=== PATIENT | male | born 1960 | race Caucasian/White ===

== ENCOUNTER 2017-03-08 13:44 | Emergency (ER) | payer OTHER ==
--- NOTE | 2017-03-08 15:58 | ED CLINICAL REPORT ---
Clinical Report - Physicians/Mid Levels [facility] [address] [place] [address] 03/08/2017 13:47 Patient: MARV MARCELINO Time Seen: 1445; initial patient contact. Arrived- By private vehicle. Historian- patient. HISTORY OF PRESENT ILLNESS Chief Complaint: Injury to the right foot. The injury happened just prior to arrival. Occurred at home. ( pt was cutting through a log, when the chainsaw went through the log and onto the top of his right foot, cutting it.). The patient sustained a laceration (with a chain saw). Patient is experiencing moderate pain. Patient denies injury to the head or neck. REVIEW OF SYSTEMS The patient sustained a laceration to the right foot. Foreign body is suspected (dirt and debris from sawing). No weakness or numbness. All systems otherwise negative, except as recorded above. PAST HISTORY See nurses notes. Tetanus immunization status is unknown. Problems: Hypertension. Medications: Aspirin Oral (Tablet Chewable 81 mg) 2 tablets, daily. Lisinopril Oral 20 mg, daily. Allergies: No Known Drug Allergy. SOCIAL HISTORY Never smoker. Alcohol use. No drug use. ADDITIONAL NOTES The nursing notes have been reviewed with agreement regarding the chief complaint, HPI, ROS, PMH and patient medications and allergies. PHYSICAL EXAM Vital Signs: 03/08/2017 16:03 BP: 125/75. HR: 60. RR: 16. O2 saturation: 100%. Temp: 98.1 F. Have been reviewed. Appearance: Alert. Oriented X3. No acute distress. Head: Head atraumatic. Extremities: Right foot: deep 5.0 cm laceration and visualized foreign body located in the dorsal aspect of the mid foot. SEE LACERATION PROCEDURE NOTE #1. Limited weight bearing secondary to pain. Neurovascular intact distally. No deformity. No ankle injury. Extremities otherwise negative. Neuro, Vascular and Tendons: Vascular status intact. Sensation intact. Motor intact. Tendon function intact. Neuro: Oriented X 3. LABS, X-RAYS, AND EKG Rt Foot X-ray: (Name: Marv Marcelino : 1960 MR#: [id number] Ordering Provider: CINTHIA TAFOYA Exam(s): XR FOOT 3 VIEWS - LEFT Date of Exam: 03/08/2017 __ PROCEDURE: XR FOOT 3 VIEWS - LEFT INDICATION: CHAINSAW INCIDENT TECHNIQUE: Three views. COMPARISON: None. FINDINGS: Cortical disruption of the distal aspect of the medial cuneiform with overlying soft tissue laceration and bone fragments. No other abnormalities. IMPRESSION: 1. Open fracture of the left medial cuneiform. 2. Results discussed with Dr. Tafoya. Electronically Final signed by:Payam Johnson MD 03/08/2017 4:18:22). The X-rays were independently viewed by me, interpreted by the radiologist and discussed with the radiologist. PROGRESS AND PROCEDURES Laceration Repair: Time: 1450. Location: right foot. Per protocol, time-out completed immediately before the procedure. Length: 5 cm. Complexity: intermediate (single layer closure with heavy contamination and requiring extensive irrigation and cleaning) and simple (local anesthesia used and sutured). Wound depth/shape- subcutaneous and irregular, with avulsion and involving fascia and muscle. Contamination present. Contused tissue present. Tissue loss present. Exam note: tissue loss to the dorsum of the foot. Distal neuro/vascular/tendon status normal. Tendon examined. No sensory deficit or motor deficit distally. Local anesthesia provided using 1% lidocaine (7 mL). Prepped with chlorhexidine. Wound explored, cleansed, irrigated and examined to the base in bloodless field extensively with normal saline. Debrided. Foreign material removed. Closure of skin: interrupted 4-0 Vicryl (9 sutures). Post-procedure: he is stable and there are no complications. Bleeding is controlled and neuro-vascular status is intact distal to the wound. Dressing applied. Tetanus immunization given. Estimated blood loss: 3 mL. Course of Care: Patient is stable. Physical exam findings are improved. Symptoms better. CLINICAL IMPRESSION Multiple lacerations to the right foot. Complicated repair. No foreign body present. Multiple deep skin avulsions of the right foot.No foreign body present. Open nondisplaced fracture of the right lateral cuneiform. INSTRUCTIONS Apply ice. Use crutches for four days until better. Protect wound and keep wound area clean. Keep wounds dry. Apply compresses as instructed. Immobilize wound area as instructed. Sutures should be removed in ten days. Elevate affected areas above chest level. No weight bearing on right leg for two days until better. No dietary restrictions. Warnings: COMPLICATIONS: Complications from this condition are possible. Future problems may include infection, scarring, loss of function, pain and deformity. INFECTION: Watch for signs of infection (increasing heat and redness, pus-like drainage, swelling, or increased pain). Return or see your doctor if these signs occur. It is important to follow up with a physician for further evaluation and treatment. TETANUS: You were given a tetanus shot during your visit. Make a note for future reference. GENERAL WARNINGS: Return or contact your physician immediately if your condition worsens or changes unexpectedly, if not improving as expected, or if other problems arise. Specifically return if pain or fever greater than 102 degrees F and not controlled by ibuprofen. Your Current Medications: CONTINUE TAKING THE FOLLOWING MEDICATIONS: Aspirin Oral : Tablet Chewable 81 mg, 2 tablets daily. Lisinopril Oral : 20 mg daily. Prescription Medications: Cephalexin 500 mg: take 1 capsule orally every 6 hours for 7 days. No refill. Follow-up: Follow up with your doctor Friday for wound check. Understanding of the discharge instructions verbalized by patient. (Electronically signed by Pauline Butler PA-C 03/08/2017 22:09)
--- NOTE | 2017-03-08 15:58 | ED ORDER SUMMARY ---
..... Patient: KOBE ALBA OrderSheet [facility] VisitID: [id number] [address] [place] [address] 56y, M Registration Date/Time: 03/08/2017 ORDER SHEET Weight: 91.6 kg (stated) Allergies: No Known Drug Allergy GENERAL ORDERS: Foot 3V Right Urgent (14:18 03/08/2017 Zayda CalhounNGunjan verbal order read back to Fabien LIRA) (Ack 14:22 Miladis) (Cancelled: Wrong Order15:18 RKarcelestino) MEDICATION ORDERS: Tdap IM 0.5 mL (NOW) (14:42 03/08/2017 Zayda Rivas verbal order read back to Fabien LIRA) (Ack 14:44 Zayda R.NGunjan) (15:58 Zayda R.N.) IV FLUIDS: ORDER SHEET NOTES: [Electronically signed by Stephanie Echavarria R.N. (16:55 03/08/2017)] [Electronically signed by Pauline Butler PA-C (22:09 03/08/2017)] [Electronically locked/signed by Stephanie Echavarria R.N. (16:55 03/08/2017)]
--- NOTE | 2017-03-08 15:58 | ED NURSING NOTES ---
Clinical Report - Nurses [facility] [address] [place] [address] 03/08/2017 13:47 Patient: KOBE ALBA TRIAGE Triage time 13:55. Acuity: LEVEL 3. Chief Complaint: LACERATION and (from a chainshaw). Alert. No acute distress. SEPSIS SCREEN: Sepsis Screen. Negative (no infection suspected/documented). --13:58 Stephanie Echavarria R.N. 13:55 03/08/17. BP: 136/77. HR: 55. RR: 16. O2 saturation: 97%. Temp: 98.6 F. Pain level now 0/10. --13:58 Stephanie Echavarria R.N. Weight: 91.6 kg stated. Height/Length: 71 inches Per Patient. BMI: 28.2. --13:57 Stephanie Echavarria R.N. Medications Lisinopril Oral 20 mg, daily. --13:58 Stephanie Echavarria R.N. Aspirin Oral (Tablet Chewable 81 mg) 2 tablets, daily. --13:58 Stephanie Echavarria R.N. Allergies No Known Drug Allergy. --13:58 Stephanie Echavarria R.N. History Arrived by private vehicle. Historian: patient. Primary physician (Rupesh Tompkins). Location of injuries: left foot. This occurred today (1 hour ago). 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 PAST MEDICAL HX: Tetanus status: unknown. Immunizations: status is unknown. SOCIAL HX: Never smoker. Alcohol use; consumes two beers a day. He has not traveled outside the [place] ABUSE ASSESSMENT: No report of abuse. SELF HARM ASSESSMENT: A self harm assessment was performed. The patient answered "no" to the question "Do you have thoughts of harming or killing yourself?" and "Have you recently had thoughts about harming or killing others?". NUTRITIONAL RISK ASSESSMENT: The nutritional risk assessment revealed no deficiencies. FUNCTIONAL ASSESSMENT: Functional assessment: no impairments noted. LEARNING NEEDS ASSESSMENT: The learning needs assessment revealed no barriers. --13:58 Stephanie Echavarria R.N. PROBLEMS: Hypertension. --13:58 Stephanie Echavarria R.N. Interventions ID band on patient. Ambulatory. --13:58 Stephanie Echavarria R.N. PHYSICAL ASSESSMENT Ambulatory to room. GENERAL / NEURO / PSYCH: Alert. Appears in no acute distress. RESPIRATORY: Respirations not labored. CVS: Capillary refill less than 2 seconds. EXTREMITIES: Left dorsal foot: laceration with controlled bleeding (CSM WNL in Ext.). SKIN: Skin is warm and dry. --14:00 Stephanie Echavarria R.N. NURSING PROGRESS NOTES Two patient identifiers checked. Call light placed in reach. Side rails up x 2. Bed placed in lowest position. Brakes of bed on. Patient ready for evaluation- chart flagged. --14:00 Stephanie Echavarria R.N. 15:58 03/08/2017 TDAP IM 0.5 mL given. (Lot#: [id number], expiration date: 08/24/2018). Given in the right deltoid. Allergies verified and confirmed 5 rights. Vaccine information statement provided to the patient. --15:58 Stephanie Echavarria R.N. 16:00. Applied clean pressure dressing (mepilex dressing applied by provider.). --16:55 Stephanie Echavarria R.N. DISPOSITION / DISCHARGE 16:03 03/08/17. BP: 125/75. HR: 60. RR: 16. O2 saturation: 100%. Temp: 98.1 F. Pain level now 0/10. --16:51 Stephanie Echavarria R.N. 16:03. Departure time: 1603. Condition at departure: stable. No learning barriers present. Discharge instructions provided and reviewed with the patient. Reviewed medication(s) side effects, precautions, dosing and course information. Prescription(s) given to the patient. Reviewed wound care instructions. Reviewed referral to family practice for followup. Work note given. Patient verbalized understanding. Written instructions provided in Japanese. The patient was discharged home and accompanied by spouse. He left the Emergency Department ambulatory and via private vehicle. Spouse driving. Medication list reviewed and validated. --16:53 Stephanie Echavarria R.N. Locked/Released at 03/08/2017 16:55 by Stephanie Echavarria R.N.
--- NOTE | 2017-03-08 15:58 | ED ORDER SUMMARY ---
..... Patient: KOBE ALBA OrderSheet [facility] VisitID: [id number] [address] [place] [address] 56y, M Registration Date/Time: 03/08/2017 ORDER SHEET Weight: 91.6 kg (stated) Allergies: No Known Drug Allergy GENERAL ORDERS: Foot 3V Right Urgent (14:18 03/08/2017 Zayda CalhounNGunjan verbal order read back to Fabien LIRA) (Ack 14:22 Miladis) (Cancelled: Wrong Order15:18 RKarcelestino) MEDICATION ORDERS: Tdap IM 0.5 mL (NOW) (14:42 03/08/2017 Zayda Rivas verbal order read back to Fabien LIRA) (Ack 14:44 Zayda R.NGunjan) (15:58 Zayda R.N.) IV FLUIDS: ORDER SHEET NOTES: [Electronically signed by Stephanie Echavarria R.N. (16:55 03/08/2017)] [Electronically signed by Pauline Butler PA-C (22:09 03/08/2017)] [Electronically locked/signed by Stephanie Echavarria R.N. (16:55 03/08/2017)]
--- NOTE | 2017-03-08 15:58 | ED CLINICAL REPORT ---
Clinical Report - Physicians/Mid Levels [facility] [address] [place] [address] 03/08/2017 13:47 Patient: MARV MARCELINO Time Seen: 1445; initial patient contact. Arrived- By private vehicle. Historian- patient. HISTORY OF PRESENT ILLNESS Chief Complaint: Injury to the right foot. The injury happened just prior to arrival. Occurred at home. ( pt was cutting through a log, when the chainsaw went through the log and onto the top of his right foot, cutting it.). The patient sustained a laceration (with a chain saw). Patient is experiencing moderate pain. Patient denies injury to the head or neck. REVIEW OF SYSTEMS The patient sustained a laceration to the right foot. Foreign body is suspected (dirt and debris from sawing). No weakness or numbness. All systems otherwise negative, except as recorded above. PAST HISTORY See nurses notes. Tetanus immunization status is unknown. Problems: Hypertension. Medications: Aspirin Oral (Tablet Chewable 81 mg) 2 tablets, daily. Lisinopril Oral 20 mg, daily. Allergies: No Known Drug Allergy. SOCIAL HISTORY Never smoker. Alcohol use. No drug use. ADDITIONAL NOTES The nursing notes have been reviewed with agreement regarding the chief complaint, HPI, ROS, PMH and patient medications and allergies. PHYSICAL EXAM Vital Signs: 03/08/2017 16:03 BP: 125/75. HR: 60. RR: 16. O2 saturation: 100%. Temp: 98.1 F. Have been reviewed. Appearance: Alert. Oriented X3. No acute distress. Head: Head atraumatic. Extremities: Right foot: deep 5.0 cm laceration and visualized foreign body located in the dorsal aspect of the mid foot. SEE LACERATION PROCEDURE NOTE #1. Limited weight bearing secondary to pain. Neurovascular intact distally. No deformity. No ankle injury. Extremities otherwise negative. Neuro, Vascular and Tendons: Vascular status intact. Sensation intact. Motor intact. Tendon function intact. Neuro: Oriented X 3. LABS, X-RAYS, AND EKG Rt Foot X-ray: (Name: Marv Marcelino : 1960 MR#: [id number] Ordering Provider: CINTHIA TAFOYA Exam(s): XR FOOT 3 VIEWS - LEFT Date of Exam: 03/08/2017 __ PROCEDURE: XR FOOT 3 VIEWS - LEFT INDICATION: CHAINSAW INCIDENT TECHNIQUE: Three views. COMPARISON: None. FINDINGS: Cortical disruption of the distal aspect of the medial cuneiform with overlying soft tissue laceration and bone fragments. No other abnormalities. IMPRESSION: 1. Open fracture of the left medial cuneiform. 2. Results discussed with Dr. Tafoya. Electronically Final signed by:Payam Johnson MD 03/08/2017 4:18:22). The X-rays were independently viewed by me, interpreted by the radiologist and discussed with the radiologist. PROGRESS AND PROCEDURES Laceration Repair: Time: 1450. Location: right foot. Per protocol, time-out completed immediately before the procedure. Length: 5 cm. Complexity: intermediate (single layer closure with heavy contamination and requiring extensive irrigation and cleaning) and simple (local anesthesia used and sutured). Wound depth/shape- subcutaneous and irregular, with avulsion and involving fascia and muscle. Contamination present. Contused tissue present. Tissue loss present. Exam note: tissue loss to the dorsum of the foot. Distal neuro/vascular/tendon status normal. Tendon examined. No sensory deficit or motor deficit distally. Local anesthesia provided using 1% lidocaine (7 mL). Prepped with chlorhexidine. Wound explored, cleansed, irrigated and examined to the base in bloodless field extensively with normal saline. Debrided. Foreign material removed. Closure of skin: interrupted 4-0 Vicryl (9 sutures). Post-procedure: he is stable and there are no complications. Bleeding is controlled and neuro-vascular status is intact distal to the wound. Dressing applied. Tetanus immunization given. Estimated blood loss: 3 mL. Course of Care: Patient is stable. Physical exam findings are improved. Symptoms better. CLINICAL IMPRESSION Multiple lacerations to the right foot. Complicated repair. No foreign body present. Multiple deep skin avulsions of the right foot.No foreign body present. Open nondisplaced fracture of the right lateral cuneiform. INSTRUCTIONS Apply ice. Use crutches for four days until better. Protect wound and keep wound area clean. Keep wounds dry. Apply compresses as instructed. Immobilize wound area as instructed. Sutures should be removed in ten days. Elevate affected areas above chest level. No weight bearing on right leg for two days until better. No dietary restrictions. Warnings: COMPLICATIONS: Complications from this condition are possible. Future problems may include infection, scarring, loss of function, pain and deformity. INFECTION: Watch for signs of infection (increasing heat and redness, pus-like drainage, swelling, or increased pain). Return or see your doctor if these signs occur. It is important to follow up with a physician for further evaluation and treatment. TETANUS: You were given a tetanus shot during your visit. Make a note for future reference. GENERAL WARNINGS: Return or contact your physician immediately if your condition worsens or changes unexpectedly, if not improving as expected, or if other problems arise. Specifically return if pain or fever greater than 102 degrees F and not controlled by ibuprofen. Your Current Medications: CONTINUE TAKING THE FOLLOWING MEDICATIONS: Aspirin Oral : Tablet Chewable 81 mg, 2 tablets daily. Lisinopril Oral : 20 mg daily. Prescription Medications: Cephalexin 500 mg: take 1 capsule orally every 6 hours for 7 days. No refill. Follow-up: Follow up with your doctor Friday for wound check. Understanding of the discharge instructions verbalized by patient. (Electronically signed by Pauline Butler PA-C 03/08/2017 22:09)
--- NOTE | 2017-03-08 15:58 | ED NURSING NOTES ---
Clinical Report - Nurses [facility] [address] [place] [address] 03/08/2017 13:47 Patient: KOBE ALBA TRIAGE Triage time 13:55. Acuity: LEVEL 3. Chief Complaint: LACERATION and (from a chainshaw). Alert. No acute distress. SEPSIS SCREEN: Sepsis Screen. Negative (no infection suspected/documented). --13:58 Stephanie Echavarria R.N. 13:55 03/08/17. BP: 136/77. HR: 55. RR: 16. O2 saturation: 97%. Temp: 98.6 F. Pain level now 0/10. --13:58 Stephanie Echavarria R.N. Weight: 91.6 kg stated. Height/Length: 71 inches Per Patient. BMI: 28.2. --13:57 Stephanie Echavarria R.N. Medications Lisinopril Oral 20 mg, daily. --13:58 Stephanie Echavarria R.N. Aspirin Oral (Tablet Chewable 81 mg) 2 tablets, daily. --13:58 Stephanie Echavarria R.N. Allergies No Known Drug Allergy. --13:58 Stephanie Echavarria R.N. History Arrived by private vehicle. Historian: patient. Primary physician (Rupesh Tompkins). Location of injuries: left foot. This occurred today (1 hour ago). 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 PAST MEDICAL HX: Tetanus status: unknown. Immunizations: status is unknown. SOCIAL HX: Never smoker. Alcohol use; consumes two beers a day. He has not traveled outside the [place] ABUSE ASSESSMENT: No report of abuse. SELF HARM ASSESSMENT: A self harm assessment was performed. The patient answered "no" to the question "Do you have thoughts of harming or killing yourself?" and "Have you recently had thoughts about harming or killing others?". NUTRITIONAL RISK ASSESSMENT: The nutritional risk assessment revealed no deficiencies. FUNCTIONAL ASSESSMENT: Functional assessment: no impairments noted. LEARNING NEEDS ASSESSMENT: The learning needs assessment revealed no barriers. --13:58 Stephanie Echavarria R.N. PROBLEMS: Hypertension. --13:58 Stephanie Echavarria R.N. Interventions ID band on patient. Ambulatory. --13:58 Stephanie Echavarria R.N. PHYSICAL ASSESSMENT Ambulatory to room. GENERAL / NEURO / PSYCH: Alert. Appears in no acute distress. RESPIRATORY: Respirations not labored. CVS: Capillary refill less than 2 seconds. EXTREMITIES: Left dorsal foot: laceration with controlled bleeding (CSM WNL in Ext.). SKIN: Skin is warm and dry. --14:00 Stephanie Echavarria R.N. NURSING PROGRESS NOTES Two patient identifiers checked. Call light placed in reach. Side rails up x 2. Bed placed in lowest position. Brakes of bed on. Patient ready for evaluation- chart flagged. --14:00 Stephanie Echavarria R.N. 15:58 03/08/2017 TDAP IM 0.5 mL given. (Lot#: [id number], expiration date: 08/24/2018). Given in the right deltoid. Allergies verified and confirmed 5 rights. Vaccine information statement provided to the patient. --15:58 Stephanie Echavarria R.N. 16:00. Applied clean pressure dressing (mepilex dressing applied by provider.). --16:55 Stephanie Echavarria R.N. DISPOSITION / DISCHARGE 16:03 03/08/17. BP: 125/75. HR: 60. RR: 16. O2 saturation: 100%. Temp: 98.1 F. Pain level now 0/10. --16:51 Stephanie Echavarria R.N. 16:03. Departure time: 1603. Condition at departure: stable. No learning barriers present. Discharge instructions provided and reviewed with the patient. Reviewed medication(s) side effects, precautions, dosing and course information. Prescription(s) given to the patient. Reviewed wound care instructions. Reviewed referral to family practice for followup. Work note given. Patient verbalized understanding. Written instructions provided in German. The patient was discharged home and accompanied by spouse. He left the Emergency Department ambulatory and via private vehicle. Spouse driving. Medication list reviewed and validated. --16:53 Stephanie Echavarria R.N. Locked/Released at 03/08/2017 16:55 by Stephanie Echavarria R.N.
--- NOTE | 2017-03-08 16:18 | DIAGNOSTIC IMAGING REPORT ---
PROCEDURE: XR FOOT 3 VIEWS - LEFT INDICATION: CHAINSAW INCIDENT TECHNIQUE: Three views. COMPARISON: None. FINDINGS: Cortical disruption of the distal aspect of the medial cuneiform with overlying soft tissue laceration and bone fragments. No other abnormalities. IMPRESSION: 1. Open fracture of the left medial cuneiform. 2. Results discussed with Dr. Medina.
--- NOTE | 2017-03-08 22:09 | ED MAR SUMMARY ---
..... Medication Administration Record [facility] [address] [place] [address] Patient: KOBE ALBA Visit ID: [id number] 56y, M Weight: 91.6 kg Height/Length: 71 in BMI: 28.2 ALLERGIES: No Known Drug Allergy Given 15:58 03/08/2017 Stephanie Echavarria RGunjanNGunjan Medication Administered: TDAP [IM], Dose: 0.5 mL IM. Medication Ordered: Tdap IM 0.5 mL (NOW).
--- NOTE | 2017-03-08 22:09 | ED MED RECONCILIATION SUMMARY ---
Patient: KOBE ALBA Medication Reconciliation Report [facility] VisitID: [id number] [address] [place] [address] 56y, M Registration Date/Time: 03/08/2017 Weight: 91.6 kg Height/Length: 71 in. BMI: 28.2 ALLERGIES: No Known Drug Allergy The patient's Home Medications are listed below: CONTINUE TAKING THE FOLLOWING MEDICATIONS: Aspirin Oral (81 mg) 2 tablets, daily Lisinopril Oral 20 mg, daily The source(s) of the original Home Medication information: Not obtained. The following Medications were given to the patient in the Emergency Department: TDAP [IM] IM 0.5 mL, administered: 03/08/2017 3:58:00 PM The following Medications were prescribed to the patient: Cephalexin 500 mg: take 1 capsule orally every 6 hours for 7 days. No refill. -- Pauline Butler PA-C
--- NOTE | 2017-03-08 22:09 | ED MAR SUMMARY ---
..... Medication Administration Record [facility] [address] [place] [address] Patient: KOBE ALBA Visit ID: [id number] 56y, M Weight: 91.6 kg Height/Length: 71 in BMI: 28.2 ALLERGIES: No Known Drug Allergy Given 15:58 03/08/2017 Stephanie Echavarria RGunjanNGunjan Medication Administered: TDAP [IM], Dose: 0.5 mL IM. Medication Ordered: Tdap IM 0.5 mL (NOW).
--- NOTE | 2017-03-08 22:09 | ED MED RECONCILIATION SUMMARY ---
Patient: KOBE ALBA Medication Reconciliation Report [facility] VisitID: [id number] [address] [place] [address] 56y, M Registration Date/Time: 03/08/2017 Weight: 91.6 kg Height/Length: 71 in. BMI: 28.2 ALLERGIES: No Known Drug Allergy The patient's Home Medications are listed below: CONTINUE TAKING THE FOLLOWING MEDICATIONS: Aspirin Oral (81 mg) 2 tablets, daily Lisinopril Oral 20 mg, daily The source(s) of the original Home Medication information: Not obtained. The following Medications were given to the patient in the Emergency Department: TDAP [IM] IM 0.5 mL, administered: 03/08/2017 3:58:00 PM The following Medications were prescribed to the patient: Cephalexin 500 mg: take 1 capsule orally every 6 hours for 7 days. No refill. -- Pauline Butler PA-C
--- NOTE | 2017-03-08 22:09 | ED DISCHARGE INSTRUCTIONS ---
Patient: KOBE ALBA General Instructions Merged With [facility] VisitID: [id number] [place] [address] 56y, M Registration Date/Time: 03/08/2017 Multiple lacerations to the right foot. Complicated repair. No foreign body present. Multiple deep skin avulsions of the right foot.No foreign body present. Open nondisplaced fracture of the right lateral cuneiform. INSTRUCTIONS Apply ice. Use crutches for four days until better. Protect wound and keep wound area clean. Keep wounds dry. Apply compresses as instructed. Immobilize wound area as instructed. Sutures should be removed in ten days. Elevate affected areas above chest level. No weight bearing on right leg for two days until better. No dietary restrictions. Warnings: COMPLICATIONS: Complications from this condition are possible. Future problems may include infection, scarring, loss of function, pain and deformity. INFECTION: Watch for signs of infection (increasing heat and redness, pus-like drainage, swelling, or increased pain). Return or see your doctor if these signs occur. It is important to follow up with a physician for further evaluation and treatment. TETANUS: You were given a tetanus shot during your visit. Make a note for future reference. GENERAL WARNINGS: Return or contact your physician immediately if your condition worsens or changes unexpectedly, if not improving as expected, or if other problems arise. Specifically return if pain or fever greater than 102 degrees F and not controlled by ibuprofen. Your Current Medications: CONTINUE TAKING THE FOLLOWING MEDICATIONS: Aspirin Oral : Tablet Chewable 81 mg, 2 tablets daily. Lisinopril Oral : 20 mg daily. Prescription Medications: Cephalexin 500 mg: take 1 capsule orally every 6 hours for 7 days. No refill. Follow-up: Follow up with your doctor Friday for wound check. Understanding of the discharge instructions verbalized by patient. ADDITIONAL INFORMATION Laceration, Extremity (Sutures, Santiago, Or Tape) A laceration is a cut through the skin. This will usually require stitches (sutures) or santiago if it is deep. Minor cuts may be treated with surgical tape closures. Home care The following guidelines will help you care for your laceration at home: Keep the wound clean and dry. If a bandage was applied and it becomes wet or dirty, replace it. Otherwise, leave it in place for the first 24 hours, then change it once a day or as directed. If stitches or santiago were used, clean the wound daily: After removing the bandage, wash the area with soap and water. Use a wet cotton swab to loosen and remove any blood or crust that forms. After cleaning, keep the wound clean and dry. Talk with your doctor before applying any antibiotic ointment to the wound. Reapply the bandage. You may remove the bandage to shower as usual after the first 24 hours, but do not soak the area in water (no swimming) until the stitches or santiago are removed. If surgical tape closures were used, keep the area clean and dry. If it becomes wet, blot it dry with a towel. The doctor may prescribe an antibiotic cream or ointment to prevent infection. Do not stop taking this medication until you have finished the prescribed course or the doctor tells you to stop. The doctor may also prescribe medications for pain. Follow the doctors instructions for taking these medications. If you have chronic liver or kidney disease or ever had a stomach ulcer or GI bleeding, talk with your doctor before using these medicines. Follow-up care Follow up with your health care provider. Most skin wounds heal within ten days. However, an infection may sometimes occur despite proper treatment. Therefore, check the wound daily for the signs of infection listed below. Stitches and santiago should be removed within 714 days. If surgical tape closures were used, you may remove them after 10 days, if they have not fallen off by then. Notify your doctor if you notice persistent numbness or weakness in the injured extremity. (Note:A radiologist will review any X-rays that were taken. We will notify you of any new findings that may affect your care.) When to seek medical care Get prompt medical attention if any of these occur: Increasing pain in the wound Redness, swelling, or pus coming from the wound Fever of 100.4F (38C) or higher, or as directed by your health care provider If stitches or santiago come apart or fall out before your next appointment If the surgical tape closures fall off within seven days, or the wound edges re-open Bleeding not controlled by direct pressure Fracture:Foot You have a fracture (break) of one of the bones in your foot. This will cause pain, swelling and sometimes bruising. It will take about 4-6 weeks to heal. A foot fracture may be treated with a special shoe, splint, cast or boot. Home Care: You may be given a splint, cast, shoe or boot to prevent movement at the injury. Unless you were told otherwise, use crutches or a walker and do not bear weight on the injured foot until cleared by your doctor to do so. (Crutches and walkers can be rented at many pharmacies and surgical/orthopedic supply stores). Do not put weight on a splint; it will break. Keep your leg elevated to reduce pain and swelling. When sleeping, place a pillow under the injured leg. When sitting, support the injured leg so it is level with your waist. This is very important during the first 48 hours. Apply an ice pack (ice cubes in a plastic bag, wrapped in a towel) over the injured area for 20 minutes every 1-2 hours the first day. You can place the ice pack directly over the splint/cast. Unless told otherwise, you can open the boot or shoe to apply ice. Continue with ice packs 3-4 times a day for the next two days, then as needed for the relief of pain and swelling. Keep the splint/cast/boot/shoe dry. When bathing, protect it with a large plastic bag, rubber-banded at the top end. If a fiberglass splint/cast or boot gets wet, you can dry it with a hair-dryer. Unless told otherwise, you can remove a boot or shoe to bathe. You may use acetaminophen (Tylenol) or ibuprofen (Motrin, Advil) to control pain, unless another pain medicine was prescribed. [NOTE: If you have chronic liver or kidney disease or ever had a stomach ulcer or GI bleeding, talk with your doctor before using these medicines.] Follow Up with your doctor within one week, or as advised by our staff, to be sure the bone is healing properly. If you were given a splint, it may be changed to a cast or boot at your follow-up visit.[NOTE: A radiologist will review any X-rays that were taken. We will notify you of any new findings that may affect your care.] Get Prompt Medical Attention if any of the following occur: The plaster cast or splint becomes wet or soft The fiberglass cast or splint remains wet for more than 24 hours Increased tightness or pain under the cast or splint Toes become swollen, cold, blue, numb or tingly Bandage Change If the bandage becomes wet or dirty, replace it. Otherwise, leave it in place for the first 24 hours. Then once a day: After removing the bandage, wash the area with soap and water. Use a wet cotton swab to loosen and remove any blood or crust that forms on the wound. After cleaning, apply a thin layer of antibiotic ointment or cream. Reapply the bandage. You may shower as usual after the first 24 hours. If the bandage is on an arm or leg, cover it with a plastic bag rubber banded at both ends before showering. No tub baths or swimming until the bandage is removed and the wound healed (at least 7 days). Laceration, Extremity (Sutures, Kincaid, Or Tape) A laceration is a cut through the skin. This will usually require stitches (sutures) or santiago if it is deep. Minor cuts may be treated with surgical tape closures. Home care The following guidelines will help you care for your laceration at home: Keep the wound clean and dry. If a bandage was applied and it becomes wet or dirty, replace it. Otherwise, leave it in place for the first 24 hours, then change it once a day or as directed. If stitches or santiago were used, clean the wound daily: After removing the bandage, wash the area with soap and water. Use a wet cotton swab to loosen and remove any blood or crust that forms. After cleaning, keep the wound clean and dry. Talk with your doctor before applying any antibiotic ointment to the wound. Reapply the bandage. You may remove the bandage to shower as usual after the first 24 hours, but do not soak the area in water (no swimming) until the stitches or santiago are removed. If surgical tape closures were used, keep the area clean and dry. If it becomes wet, blot it dry with a towel. The doctor may prescribe an antibiotic cream or ointment to prevent infection. Do not stop taking this medication until you have finished the prescribed course or the doctor tells you to stop. The doctor may also prescribe medications for pain. Follow the doctors instructions for taking these medications. If you have chronic liver or kidney disease or ever had a stomach ulcer or GI bleeding, talk with your doctor before using these medicines. Follow-up care Follow up with your health care provider. Most skin wounds heal within ten days. However, an infection may sometimes occur despite proper treatment. Therefore, check the wound daily for the signs of infection listed below. Stitches and santiago should be removed within 714 days. If surgical tape closures were used, you may remove them after 10 days, if they have not fallen off by then. Notify your doctor if you notice persistent numbness or weakness in the injured extremity. (Note:A radiologist will review any X-rays that were taken. We will notify you of any new findings that may affect your care.) When to seek medical care Get prompt medical attention if any of these occur: Increasing pain in the wound Redness, swelling, or pus coming from the wound Fever of 100.4F (38C) or higher, or as directed by your health care provider If stitches or santiago come apart or fall out before your next appointment If the surgical tape closures fall off within seven days, or the wound edges re-open Bleeding not controlled by direct pressure Puncture Wound: Foot A puncture is a hole through the skin. Bacteria, dirt, and debris can be drawn into this wound, increasing the risk of infection. Antibiotics are usually not prescribed for this injury unless signs of infection are already present. Therefore, it is important to observe the wound closely for the signs of infection listed below. If you were wearing a rubber-soled shoe when the sharp object punctured your foot, there is a chance that bacteria (called "pseudomonas") from the sole of the shoe may be dragged into the wound and infect the skin, tendon or bone. This infection may start as late as 2-3 weeks after the injury. It is more serious and harder to treat than the common staph and strep skin infections, so follow the advice below. Home Care: Keep the foot raised during the first 24-48 hours to reduce swelling and pain. DO NOT BEAR WEIGHT on the injured foot if it hurts to do so. You may use acetaminophen (Tylenol) or ibuprofen (Motrin, Advil) to control pain, unless another medicine was prescribed. [NOTE: If you have chronic liver or kidney disease or ever had a stomach ulcer or GI bleeding, talk with your doctor before using these medicines.] You may shower as usual, but do not soak the wound in water (no baths or swimming) until the wound seals and there is no more drainage or bleeding. Keep the wound clean and dry. If a bandage was applied and it becomes wet or dirty, replace it. Otherwise, keep the wound covered until there is no more drainage or bleeding. Follow Up: Most puncture wounds heal within 10 days. However, an infection may sometimes occur despite proper treatment. If small particles were drawn into the puncture wound (such as fragments of cloth, rubber, wood or dirt), an infection may occur. These fragments are very hard to find during the first exam since it is not possible to get a good look inside a puncture wound and they do not show on an X-ray. Antibiotics and a minor surgical procedure to find and remove the foreign object will be needed if this happens. Over the next 2-3 weeks, check the wound daily for the warning signs listed below. If you are still having swelling or pain in the foot after two weeks, you should contact your doctor or return to this facility for an x-ray to look for an infection in the bone. [NOTE: Any X-rays taken will be reviewed by a radiologist. You will be notified of any new findings that may affect your care.] Get Prompt Medical Attention if any of the following occur: Increasing pain Foot becomes cold, blue, numb, or tingly Fever of 100.4F (38C) or higher, or as directed by your healthcare provider Redness, warmth, swelling or drainage from the wound Pain or swelling that lasts for two weeks Diphtheria Toxoid Adsorbed, Pertussis Vaccine, Acellular (Adsorbed), Tetanus Toxoid, Adsorbed Suspension for injection What is this medicine? DIPHTHERIA and TETANUS TOXOIDS; PERTUSSIS VACCINE (dif THEER ee and TET n us TOK soids; per TUS iss vak SEEN) is used to prevent diphtheria, tetanus, and pertussis infections. How should I use this medicine? This vaccine is for injection into a muscle. It is given by a health healthcare management consultant. A copy of Vaccine Information Statements will be given before each vaccination. Read this sheet carefully each time. The sheet may change frequently. Talk to your genetic supervisor regarding the use of this vaccine in children. While the DTP vaccine may be given to children ages 6 weeks to 7 years and the Tdap vaccine may be given to children at least 10 years old, precautions do apply. What side effects may I notice from receiving this medicine? Side effects that you should report to your doctor or health healthcare management consultant as soon as possible: allergic reactions like skin rash, itching or hives, swelling of the face, lips, or tongue breathing problems fever of 103 degrees F or more flu-like symptoms inconsolable crying infection pain, tingling, numbness in the hands or feet seizures swelling of arm or leg that was injected unusually weak or tired Side effects that usually do not require immediate medical attention (report these side effects to your doctor or health healthcare management consultant if they continue or are bothersome): fussy, irritable loss of appetite fever of 102 degrees F or less pain, tenderness, redness, swelling, or a 'knot' at site where injected vomiting What may interact with this medicine? immune globulin medicines that suppress your immune function like adalimumab, anakinra, infliximab medicines to treat cancer medicines that treat or prevent blood clots like warfarin, enoxaparin, and dalteparin steroid medicines like prednisone or cortisone What if I miss a dose? It is important not to miss your dose. Call your doctor or health healthcare management consultant if you are unable to keep an appointment. Where should I keep my medicine? This drug is given in a hospital or clinic and will not be stored at home. What should I tell my health care provider before I take this medicine? They need to know if you have any of these conditions: blood disorders like hemophilia fever or infection immune system problems neurologic disease seizures an unusual or allergic reaction to vaccines, thimerosal, latex, other medicines, foods, dyes, or preservatives or trying to get breast-feeding What should I watch for while using this medicine? See your health care provider for all shots of this vaccine as directed. To have protection from infection, you must have 3 shots of this vaccine plus boosters as needed. Tell your doctor right away if you have any serious or unusual side effects after getting this vaccine. Cephalexin Monohydrate Oral tablet What is this medicine? CEPHALEXIN (sef a UGO in) is a cephalosporin antibiotic. It is used to treat certain kinds of bacterial infections It will not work for colds, flu, or other viral infections. How should I use this medicine? Take this medicine by mouth with a full glass of water. Follow the directions on the prescription label. This medicine can be taken with or without food. Take your medicine at regular intervals. Do not take your medicine more often than directed. Take all of your medicine as directed even if you think you are better. Do not skip doses or stop your medicine early. Talk to your genetic supervisor regarding the use of this medicine in children. While this drug may be prescribed for selected conditions, precautions do apply. What side effects may I notice from receiving this medicine? Side effects that you should report to your doctor or health healthcare management consultant as soon as possible: allergic reactions like skin rash, itching or hives, swelling of the face, lips, or tongue breathing problems pain or trouble passing urine redness, blistering, peeling or loosening of the skin, including inside the mouth severe or watery diarrhea unusually weak or tired yellowing of the eyes, skin Side effects that usually do not require medical attention (report to your doctor or health healthcare management consultant if they continue or are bothersome): gas or heartburn genital or anal irritation headache joint or muscle pain nausea, vomiting What may interact with this medicine? probenecid some other antibiotics What if I miss a dose? If you miss a dose, take it as soon as you can. If it is almost time for your next dose, take only that dose. Do not take double or extra doses. There should be at least 4 to 6 hours between doses. Where should I keep my medicine? Keep out of the reach of children. Store at room temperature between 59 and 86 degrees F (15 and 30 degrees C). Throw away any unused medicine after the expiration date. What should I tell my health care provider before I take this medicine? They need to know if you have any of these conditions: kidney disease stomach or intestine problems, especially colitis an unusual or allergic reaction to cephalexin, other cephalosporins, penicillins, other antibiotics, medicines, foods, dyes or preservatives or trying to get breast-feeding What should I watch for while using this medicine? Tell your doctor or health healthcare management consultant if your symptoms do not begin to improve in a few days. Do not treat diarrhea with over the counter products. Contact your doctor if you have diarrhea that lasts more than 2 days or if it is severe and watery. If you have diabetes, you may get a false-positive result for sugar in your urine. Check with your doctor or health healthcare management consultant. You have been given the following additional information: Laceration, Extrem (Suture, Staple, Or Tape) Fracture, Foot Dressing Change Laceration, Extrem (Suture, Staple, Or Tape) Puncture Wound, Foot Diphtheria Toxoid Adsorbed, Pertussis Vaccine, Acellular (Adsorbed), Tetanus Toxoid, Adsorbed Suspension for injection Cephalexin Monohydrate Oral tablet No weight bearing on right leg for two days until better. (Electronically signed by Pauline Butler PA-C 03/08/2017 22:09)
== END 2017-03-08 16:03 | disposition home or self-care (01) ==
LOC: ED SRH 13:44
DX: S91.011A Laceration without foreign body, right ankle, initial encounter (principal); S92.221 Displaced fracture of lateral cuneiform of right foot; W29.3XXA Contact with powered garden and outdoor hand tools and machinery, initial encounter; Y93.89 Activity, other specified; Y99.8 Other external cause status; Y92.009 Unspecified place in unspecified non-institutional (private) residence as the place of occurrence of the external cause; I10 Essential (primary) hypertension; Z23 Encounter for immunization; Z79.82 Long term (current) use of aspirin; Z79.899 Other long term (current) drug therapy